=== PATIENT | female | born 1945 | race Caucasian/White ===

== ENCOUNTER 2020-05-16 14:50 | Inpatient (IN) | payer MEDICARE, OTHER ==
[~2020-05-16] VITALS: Ht 165.1 cm; Wt 59.9 kg
[2020-05-16] MEDS ORDERED: BISM262O28 PO (15:01)
[2020-05-16] MEDS ORDERED: NAPR-1192 PO (15:01)
[2020-05-16] MEDS ORDERED: OLAN2.5T3 PO (15:01)
--- NOTE | 2020-05-16 16:15 | NUR ---
Called report to i o psychologist.
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
[2020-05-16] MEDS ORDERED: MAGNESIUM HYDROXIDE 30 ML LIQUID UDC PO PRN (16:45)
[2020-05-16] MEDS ORDERED: ZOLPIDEM 5 MG TABLET PO PRN (16:45)
[2020-05-16] MEDS ORDERED: LORAZEPAM 0.5 MG TABLET PO PRN (16:45)
[2020-05-16 16:56] VITALS: BP 143/73
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
--- NOTE | 2020-05-16 18:04 | NUR ---
Gps/Topographical Drafter- Called Kristine Soria, friend ([phone] ) left message , informed of admission
[2020-05-16 18:34] LABS: *BILIRUBIN,URIN NEGATIVE (NEGATIVE); *BLOOD, URINE NEGATIVE (NEGATIVE); *COLOR,URINE YELLOW (YELLOW); *KETONES,URINE NEGATIVE (NEGATIVE); *UROBILINOGEN,URINE 0.2 E.U./dl (NORMAL); LEUKOCYTE ESTERASE ,URINE TRACE (NEGATIVE); NITRITE, URINE NEGATIVE (NEGATIVE); PH,URINE 5.5 (5.0-8.0); UGLUCOSE NEGATIVE (NEGATIVE)
[2020-05-16 18:39] LABS: *CLARITY,URINE HAZY (CLEAR)
[2020-05-16 19:45] VITALS: BP 131/69
[2020-05-16 22:23] LABS: BACTERIA,URINE NONE SEEN /HPF (NONE SEEN); RBC,URINE 0-3 /HPF (0-3); SQUAMOUS EPITHELIAL CELL,UR FEW /HPF (NONE SEEN)
[2020-05-17] MEDS ORDERED: NAPROXEN 500 MG TABLET ONE (00:37)
[2020-05-17] MEDS: NAPROXEN 250 MG TABLET PO PRN (00:39)
--- NOTE | 2020-05-17 06:21 | NUR ---
GPS/Rn - Received new admit from previous shift, Patient was noted lying in bed but responding to internal stimuli and close her eyes with a book on her chest in a meditating mood. Patient was asked if she is fine and she immediately responded angry with rage and calling names. Pt was left to vent out. Later Pt was noted becoming agitated with roommate over incompatibility. Offered to move Pt to another room but she refused. Pt did not sleep much during night, awake and sit in bedside chair and argued about keeping room light on while room mate wanted light off to sleep. Pt is very hyperverbal and call names. Patient is very unpredictable and easily get angry, argumentative and not approachable. Sleep about 3-4 hours and now resting in bed.
[2020-05-17 07:30] VITALS: BP 127/75
[2020-05-17 08:17] LABS: BILIRUBIN,TOTAL 0.5 mg/dL (0.2-1.0); CREATININE 0.7 mg/dL (0.6-1.3); POTASSIUM 4.4 mmol/L (3.5-5.1); TOTAL PROTEIN, SERUM 6.6 g/dL (6.4-8.2)
--- NOTE | 2020-05-17 08:41 | NUR ---
Firearms Report: Numerical Control Machine Tool Operator completed and submitted a [facility] firearms report for 5150 grave disability certification. A copy of report has been placed in patient chart.
[2020-05-17] MEDS: ARIPIPRAZOLE 5 MG TABLET PO SCH ×2 (09:00→17:00)
[2020-05-17] MEDS: DIVALPROEX 250 MG TABLET.DR PO SCH ×2 (09:00→20:36)
[2020-05-17] MEDS: NICOTINE 14 MG/24HR PATCH TD SCH (09:00)
[2020-05-17] MEDS ORDERED: LORAZEPAM 1 MG TABLET PO PRN (09:30)
[2020-05-17] MEDS ORDERED: LORAZEPAM 0.5 MG TABLET PO PRN (10:45)
--- NOTE | 2020-05-17 10:58 | NUR ---
CYNTHIA Initial Discharge Plan: Patient is currently homeless and is refusing placement at this time. Patient may need homeless skilled nursing resources or SNF placement referrals. Patient is uncooperative with care at this time. Patient's brother, Von ([phone]) is involved and CYNTHIA will continue to work with patient, evonne, and MD to ensure a safe a proper discharge plan.
[2020-05-17] MEDS: MAG HYDROX/AL HYDROX/SIMETH 30 ML LIQUID UDC PO PRN ×2 (12:57→18:35)
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
--- NOTE | 2020-05-17 13:20 | NUR ---
SW Family Contact: This marketing copywriter contacted patient's son Mock ([phone]) and left a voicemail to discuss treatment/discharge plan.
--- NOTE | 2020-05-17 15:00 | NUR ---
Gps/Manager Government- Attending her group therapy, interacting with the Rec. Therapist.
--- NOTE | 2020-05-17 15:37 | NUR ---
Gps/cloth sponger- Kristine(contact center consultant) called and was able to talked to Leanna
[2020-05-17 16:00] VITALS: BP_SYST 112; BP_SYST 124; BP_DIAS 46; BP_DIAS 70
--- NOTE | 2020-05-17 17:47 | NUR ---
Gps/Recycling Program Manager- patient continue to refused, psych. meds. reviewed with patient, continue to refused, claimed , it makes her sick, she throw up. She also claimed she cant take cilatro, onions, peas, beans - gives her rash , and closes her throat.
--- NOTE | 2020-05-17 18:36 | NUR ---
Gps/Medical Secretary- Moved to room 145-B , as requested, , r/t roommate > coughing , and refusing to have lights on.
[2020-05-17 20:00] VITALS: BP 134/70
[2020-05-18] MEDS: NAPROXEN 250 MG TABLET PO PRN ×3 (00:37→13:33)
--- NOTE | 2020-05-18 00:51 | NUR ---
GPS: Pt.at nurses station at this time arguing with staff about her medication regimen and about her psychiatrist () that she" fired "already. Pt.is angry,irritable,confrontational and refusing re-direction from staff. Has poor insight and judgement to present situation. Refused sleeping pill/anti-anxiety med.when offered. Will continue to monitor for further escalation of behavior.
[2020-05-18 07:30] VITALS: BP 133/58
[2020-05-18] MEDS: NICOTINE 14 MG/24HR PATCH TD SCH (08:39)
[2020-05-18] MEDS: ARIPIPRAZOLE 5 MG TABLET PO SCH ×2 (08:39→17:00)
[2020-05-18] MEDS: DIVALPROEX 250 MG TABLET.DR PO SCH ×2 (08:39→21:00)
[2020-05-18] MEDS: MAG HYDROX/AL HYDROX/SIMETH 30 ML LIQUID UDC PO PRN ×2 (09:35→20:49)
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
[2020-05-18 16:00] VITALS: BP 136/69
[2020-05-18 20:00] VITALS: BP 147/83
[2020-05-18] MEDS: ACETAMINOPHEN 325 MG TABLET PO PRN (23:03)
--- NOTE | 2020-05-19 06:10 | NUR ---
PATEINT ALERT, NON COMPLIANT WITH MEDICATION, TOOK ONLY MAALOX AND TYLENOL FOR TOOTH ACHE, PATIENT STILL HYPERVERBAL, AND IRRITABLE. PATIENT SLEPT 7.30 MINUTES, ATTEND ALL NEEDS MUCH POSSIBLE.
[2020-05-19 07:30] VITALS: BP 148/81
[2020-05-19] MEDS: NAPROXEN 250 MG TABLET PO PRN ×2 (07:57→20:39)
[2020-05-19] MEDS: DIVALPROEX 250 MG TABLET.DR PO SCH ×2 (08:04→20:32)
[2020-05-19] MEDS: ARIPIPRAZOLE 5 MG TABLET PO SCH ×2 (08:04→17:00)
[2020-05-19] MEDS: NICOTINE 14 MG/24HR PATCH TD SCH (08:04)
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
[2020-05-19] MEDS: MAG HYDROX/AL HYDROX/SIMETH 30 ML LIQUID UDC PO PRN ×2 (15:15→21:43)
[2020-05-19 16:00] VITALS: BP 118/70
[2020-05-19 20:17] VITALS: BP 118/68
--- NOTE | 2020-05-19 23:50 | NUR ---
Received patient in bed, hyperverbal, poor insight and poor judgement. Patient refuses routine meds. Patient took Naprosyn PRN and Maalox PRN. Patient will remain in a psych facility for further evaluation and treatment.
[2020-05-20] MEDS: ACETAMINOPHEN 325 MG TABLET PO PRN (02:15)
--- NOTE | 2020-05-20 07:21 | NUR ---
Patient refused blood draw. Explained benefits for blood draw. Patient still refused.
[2020-05-20 07:30] VITALS: BP 143/89
[2020-05-20] MEDS: ARIPIPRAZOLE 5 MG TABLET PO SCH ×2 (08:05→16:10)
[2020-05-20] MEDS: NICOTINE 14 MG/24HR PATCH TD SCH (08:05)
[2020-05-20] MEDS: DIVALPROEX 250 MG TABLET.DR PO SCH ×2 (08:05→20:54)
--- NOTE | 2020-05-20 08:06 | NUR ---
Patient refused her am medication. Patient stated "I don't take drugs that I don't need. I am not psychotic. I don't belong here."
[2020-05-20] MEDS: FAMOTIDINE 20 MG TABLET PO SCH (11:00)
--- NOTE | 2020-05-20 11:06 | NUR ---
PC HEARING: Patient had her Probable Cause heating today and it was upheld for Grave Disability.
--- NOTE | 2020-05-20 11:29 | NUR ---
Kvng altamirano faxed to court and spoke with court.
--- NOTE | 2020-05-20 12:09 | NUR ---
CYNTHIA APS Contact: CYNTHIA received a call from [employer] from [facility] ([phone]) who was inquiring about the patient's whereabouts and current status. This social worker assistant informed her of the patient's treatment and discharge plan, patient's current refusal of care and medications. Gardenia wanted to be updated with the patient's legal status and this social worker assistant will be in touch with her. CYNTHIA informed her of the patient's current legal status.
--- NOTE | 2020-05-20 13:58 | NUR ---
writ petition signed by patient and faxed to court
--- NOTE | 2020-05-20 15:15 | NUR ---
CYNTHIA Court Contact: CYNTHIA called the court ([phone]) regarding patients' Riese petition and spoke with Josie who stated that it is scheduled tomorrow 05/21/20 at 11AM. Josie also stated that the Riese and the Writ cannot be at the same tome as they are processed through different courts. CYNTHIA forwarded the information to Dr. Vincent.
[2020-05-20 15:19] VITALS: BP 126/75
--- NOTE | 2020-05-20 15:27 | NUR ---
CYNTHIA Court Contact: CYNTHIA called [facility] Court ([phone]) unable to reach a live person telephone rings and no voicemail option.
[2020-05-20] MEDS: MAG HYDROX/AL HYDROX/SIMETH 30 ML LIQUID UDC PO PRN (21:26)
[2020-05-20] MEDS: NAPROXEN 250 MG TABLET PO PRN (21:26)
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
[2020-05-21] MEDS: DIVALPROEX 250 MG TABLET.DR PO SCH ×2 (09:00→20:54)
[2020-05-21] MEDS: ARIPIPRAZOLE 5 MG TABLET PO SCH ×2 (09:00→16:13)
[2020-05-21] MEDS: NICOTINE 14 MG/24HR PATCH TD SCH (09:00)
[2020-05-21] MEDS: FAMOTIDINE 20 MG TABLET PO SCH ×2 (09:00→10:59)
[2020-05-21] MEDS: MAG HYDROX/AL HYDROX/SIMETH 30 ML LIQUID UDC PO PRN (10:59)
--- NOTE | 2020-05-21 11:05 | NUR ---
CYNTHIA Coordination of Care: Faxed patient's referral packet attention to Phillip to the following facilities for review and possible placement [facility] ([phone]), [facility] ([phone]), [facility] ([phone]), [facility] ([phone]).
--- NOTE | 2020-05-21 11:22 | NUR ---
CYNTHIA Ripalak Petition Hearing: Patient had her Riese petition Hearing today with Dr. Vincent and it was upheld.
--- NOTE | 2020-05-21 11:23 | NUR ---
SW Patient Appeal Rise: Patient requested to file an appeal for the medication capacity [facility] petition. This hospital social worker faxed the appeal document to the court and filed the confirmation in the patient's chart.
--- NOTE | 2020-05-21 14:30 | NUR ---
SNF Contact: Topher Sena admin from [facility], he stated pt is accepted.
[2020-05-21] MEDS ORDERED: OLANZAPINE 10 MG VIAL IM PRN (15:30)
[2020-05-21] MEDS: OLANZAPINE 2.5 MG TABLET PO SCH ×3 (16:12→20:57)
--- NOTE | 2020-05-21 16:23 | NUR ---
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
[2020-05-21 19:38] LABS: *BILIRUBIN,URIN NEGATIVE (NEGATIVE); *COLOR,URINE YELLOW (YELLOW); *KETONES,URINE NEGATIVE (NEGATIVE); *UROBILINOGEN,URINE 0.2 E.U./dl (NORMAL); LEUKOCYTE ESTERASE ,URINE 1+ (NEGATIVE); NITRITE, URINE NEGATIVE (NEGATIVE); PH,URINE 7.5 (5.0-8.0); UGLUCOSE NEGATIVE (NEGATIVE)
[2020-05-21 20:17] LABS: *BLOOD, URINE TRACE (NEGATIVE)
[2020-05-21 20:19] LABS: *CLARITY,URINE SLIGHTLY HAZY (CLEAR)
[2020-05-21 20:20] LABS: BACTERIA,URINE NONE SEEN /HPF (NONE SEEN); RBC,URINE 0-3 /HPF (0-3); SQUAMOUS EPITHELIAL CELL,UR FEW /HPF (NONE SEEN)
--- NOTE | 2020-05-21 21:03 | NUR ---
GPS: Pt. was refusing Zyprexa 2.5mg PO bedtime dose despite explanation of risks vs benefits x3. Explained to pt.that she lost her medication capacity hearing and unable to refuse PO med.or else she would get an IM shot instead. Pt.started yelling,screaming, being verbally abusive and threatening to jeb staff. Angry,hostile and agitated. Decided to take PO med.instead of getting Im. Poor impulse control.Insight and judgement remains impaired. Will continue to monitor for further escalation of behavior.
[2020-05-22 07:30] VITALS: BP 178/92
[2020-05-22] MEDS: OLANZAPINE 2.5 MG TABLET PO SCH (08:06)
[2020-05-22] MEDS: NAPROXEN 250 MG TABLET PO PRN (08:07)
[2020-05-22] MEDS: FAMOTIDINE 20 MG TABLET PO SCH (08:11)
[2020-05-22] MEDS: NICOTINE 14 MG/24HR PATCH TD SCH (08:12)
--- NOTE | 2020-05-22 10:30 | NUR ---
CYNTHIA Court Contact: CYNTHIA faxed the requested medical records to the court for the patient's writ hearing today (fax: [phone]) attention to Kareen for the distribution district supervisor. CYNTHIA also faxed the requested medical records to Dariusz from the patient's defendant's law office (fax: [phone]).
[2020-05-22 11:52] LABS: CREATININE 0.8 mg/dL (0.6-1.3); POTASSIUM 4.2 mmol/L (3.5-5.1)
[2020-05-22] MEDS ORDERED: NITROFURANTOIN/NITROFURAN MAC 100 MG CAPSULE PO SCH (12:00)
[2020-05-22 12:02] LABS: THYROID STIMULATING HORMONE 3.049 mIU/mL (0.358-3.740)
[2020-05-22 12:12] LABS: BASOPHILS % (AUTO) 0.3 % (0.0-2.0); EOSINOPHILS # (AUTO) 0.2 K/uL (0.0-0.7); EOSINOPHILS % (AUTO) 2.2 % (0.0-7.0); HEMOGLOBIN 14.2 g/dL (10.9-14.3); LYMPHOCYTES # (AUTO) 1.9 K/uL (20.0-40.0); LYMPHOCYTES % (AUTO) 25.2 % (20.5-51.5); MEAN CORPUSCULAR HEMOGLOBIN 29.4 uug (24.7-32.8); MEAN CORPUSCULAR HGB CONC 32 g/dL (32.3-35.6); MONOCYTES # (AUTO) 0.6 K/uL (2.0-10.0); NEUTROPHILS # (AUTO) 4.9 K/uL (1.8-8.9); NEUTROPHILS % (AUTO) 64.3 % (38.5-71.5); PLATELET COUNT (AUTO) 227 K/uL (179-408); RED BLOOD CELL COUNT(AUTO) 4.83 MIL/uL (3.63-4.92); WHITE BLOOD COUNT (AUTO) 7.6 K/uL (3.8-11.8)
[2020-05-22 12:25] LABS: BILIRUBIN,TOTAL 0.3 mg/dL (0.2-1.0); MAGNESIUM 2.3 mg/dL (1.8-2.4); PHOSPHOROUS 4.5 mg/dL (2.5-4.9); TOTAL PROTEIN, SERUM 7.2 g/dL (6.4-8.2)
--- NOTE | 2020-05-22 13:26 | NUR ---
SW Discharge Note: Patient will be discharged to detention [facility], [facility] [address] [place] [address] ([phone]) via Ambulance transportation 6PM. Crisis Manager spoke with Nathen, District Court Justice at [facility] ([phone]) who confirmed that patient will be accepted at their facility today. Patient is alert and oriented x4. Patient is not able to plan for self-care at this time but is willing to accept care provided for him at the facility. Patient denies suicidal or homicidal ideation. Patient is aware and agreeable with discharge plans. Patient presents with appropriate mood and congruent affect. Patient will follow-up with Psychiatrist Dr. Vincent and Information Systems Technician Dr. Herr at [facility]. Homeless resources were provided and include [address] information line for shelters and homeless resources. A copy of all resources given to patient was also placed in the chart. Patient signed the homeless waiver upon discharge and a copy was placed in the chart. Patients brother Von ([phone]) is made aware of the patients discharge plan.
--- NOTE | 2020-05-22 14:44 | NUR ---
SW Family Contact: This SW spoke with patient's brother Von ([phone]) and stated patient is accepted at a residential facility called [facility] and will be discharged today 05/22. He is aware and agreeable with dc plan.
[2020-05-22] MEDS ORDERED: POLYVINYL ALCOHOL OPHT DROPS 15 ML BOTTLE EACHEYE PRN (17:30)
[2020-05-22] MEDS ORDERED: VITAMINS A AND D OINT TP PRN (17:30)
[2020-05-22] MEDS ORDERED: BISMUTH SUBSALICYLATE 262 MG/15 ML UDC PO PRN (17:30)
[2020-05-22 17:37] VITALS: BP 135/77
--- NOTE | 2020-05-22 18:35 | NUR ---
REPORT GIVEN TO NICK REES FROM [facility].
--- NOTE | 2020-05-22 20:08 | NUR ---
GPS: Pt.left unit via gurney in stable condition with all her personal belongings and paperworks to be discharge to [facility]. Health instructions given to pt. prior to leaving and verbalized understanding. Pt.was calm and cooperative during discharge. No skin problems noted. Pt. was transported by 2 EMT's.
[2020-05-22] MEDS ORDERED: OLANZAPINE 2.5 MG TABLET PO SCH (21:00)
[2020-05-23] MEDS ORDERED: MULTIVITAMINS,THERAPEUTIC TABLET PO SCH (09:00)
[2020-05-23] MEDS ORDERED: OLANZAPINE 2.5 MG TABLET PO SCH (21:00)
== END 2020-05-22 20:12 | DRG 885 ==
LOC: ER 14:50 → GPS 16:34
PROVIDERS: ADMIT Psychiatry & Neurology Psychiatry; ATTEND Internal Medicine
DX: F25.0 Schizoaffective disorder, bipolar type (principal); F23 Brief psychotic disorder; N39.0 Urinary tract infection, site not specified; K92.2 Gastrointestinal hemorrhage, unspecified; K21.9 Gastro-esophageal reflux disease without esophagitis; Z73.6 Limitation of activities due to disability; R79.89 Other specified abnormal findings of blood chemistry; F60.3 Borderline personality disorder; Z59.0 Homelessness; Z88.8 Allergy status to other drugs, medicaments and biological substances; G93.9 Disorder of brain, unspecified; F09 Unspecified mental disorder due to known physiological condition
CPT/HCPCS: 36415; 83735; 84100; 84443; 85025; 87086; 93005; A4663; J2358; J3490